=== PATIENT | female | born 1975 | race Caucasian/White ===

== ENCOUNTER 2017-01-25 21:09 | Emergency (ER) | payer OTHER ==
--- NOTE | 2017-01-25 21:32 | CPEKG ---
Heart Rate: 92 RR Interval: 652 P-R Interval: 152 QRSD Interval: 88 QT Interval: 364 QTC Interval: 451 P [place]: 79 QRS [place]: 62 T Wave [place]: 54 EKG Severity - ABNORMAL ECG - EKG Impression: SINUS RHYTHM EKG Impression: MULTIPLE VENTRICULAR PREMATURE COMPLEXES Electronically Signed By: Jose Howard 26-Jan-2017 06:41:29
--- NOTE | 2017-01-25 21:55 | EDPHY ---
H & P Stated Complaint: IRREG, RAPID HR SINCE 1930, HAD HOLTER MONITOR LAST WK, HAS OWN EKG READING HPI/ROS: HPI CHIEF COMPLAINT: Palpitations HISTORY OF PRESENT ILLNESS: This patient very pleasant 41-year-old female, significant past medical history for AFib status post cardiac ablation years ago , over the past 2 weeks she has been noticing some frequent palpitations, she was seen and evaluated by Dr. Navas and had a Holter monitor. She was diagnosed with frequent PVCs and started on Coreg on Friday minimal does 3.125. States this evening she was sitting down she felt very fast palpitations she became anxious and concerned she decided come the emergency room for evaluation. She denies chest pain, shortness of breath, lightheadedness, syncope, vomiting numbness or tingling. Specifically she did not have chest pain she does tells me there was a brief episode of very fast heart rate. She did trace her rhythm on a alex on her iPad which showed PVCs bigeminy pattern. Past Medical History: AFib status post cardiac ablation, recent diagnosis of frequent PVCs on Coreg Past Surgical History: Right shoulder surgery, cardiac ablation Social History: Denies daily use of drugs alcohol tobacco products, lives in [place], at bedside Family History: Noncontributory ROS REVIEW OF SYSTEMS: A comprehensive 10 point review of systems is otherwise negative aside from elements mentioned in the history of present illness. Exam Constitutional appears well nontoxic,triage nursing summary reviewed, vital signs reviewed, awake/alert. Eyes normal conjunctivae and sclera, EOMI, PERRLA. HENT normal inspection, atraumatic, moist mucus membranes, no epistaxis, neck supple/ no meningismus, no raccoon eyes. Respiratory clear to auscultation bilaterally, normal breath sounds, no respiratory distress, no wheezing. Cardiovascular rate normal, regular rhythm, no murmur, no edema, distal pulses normal. Gastrointestinal soft, non-tender, no rebound, no guarding, normal bowel sounds, no distension, no pulsatile mass. Genitourinary no CVA tenderness. Musculoskeletal no midline vertebral tenderness, full range of motion, no calf swelling, no tenderness of extremities, no meningismus, good pulses, neurovascularly intact. Skin pink, warm, & dry, no rash, skin atraumatic. Neurologic awake, alert and oriented x 3, AAOx3, moves all 4 extremities equally, motor intact, sensory intact, CN II-XII intact, normal cerebellar, normal vision, normal speech. Psychiatric normal mood/affect. Heme/Lymph/Immune no lymphadenopathy. Differential Diagnosis: includes but is not limited to in a particular order, electrolyte disturbance, dehydration, PVCs, bigeminy, other cardiac arrhythmia, doubt acute coronary syndrome Medical Decision Making: plan for this patient showed an IV established be placed on full court monitor she will have an EKG will check basic lab work including a troponin. However upon arrival here in emergency room she has no palpitations she feels fine she is slightly anxious, she does not have chest pain or shortness of breath or any symptoms at this time. Vital signs are stable. Re-evaluation: EKG: Time of EKG 2128 this is sinus rhythm rate of 92 PVC present. Otherwise no acute ischemia. 2234: Re-evaluation this time this patient is resting comfortably no acute distress. No chest pain or shortness of breath. Placed on a full court monitor at this time no signs of cardiac arrhythmia. Does have PVCs on her EKG this is most likely your cause of her palpitations. I do recommend that she follows up with Dr. 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 They may need to increase this dose. She understands return emergency room she develops worsening symptoms includes severe palpitations, feeling she is going to pass out, syncope, chest pain shortness of breath. It is noted her blood work is reassuring, negative troponin, nonischemic EKG, normal chest x-ray. Patient is comfortable this plan. ED x-ray chest one view: negative for acute cardiopulmonary disease. Source: Patient - Personal History LMP (Females 10-55): 1-7 Days Ago Current Tetanus/Diphtheria Vaccine: Yes - Medical/Surgical History Hx Asthma: No Hx Chronic Respiratory Disease: No Hx Diabetes: No Hx Cardiac Disease: No Hx Renal Disease: No Hx Cirrhosis: No Hx Alcoholism: No Hx HIV/AIDS: No Hx Splenectomy or Spleen Trauma: No Other PMH: A-FIB ABLATION- 04/2014. SHOULDER SURG - Social History Smoking Status: Never smoked Constitutional: Initial Vital Signs Temperature (C) 36.4 C 01/25/17 21:16 Heart Rate 95 01/25/17 21:16 Respiratory Rate 18 01/25/17 21:16 Blood Pressure 112/80 01/25/17 21:16 O2 Sat (%) 100 01/25/17 21:16 O2 Delivery Mode Room Air Allergies/Adverse Reactions: No Known Allergies Allergy (Unverified 01/25/17 21:13) Home Medications: Medication Instructions Recorded Aspirin 01/08/15 Ciprodex Otic Suspension 01/25/17 Coreg 01/25/17 Medical Decision Making - Data Points Laboratory Results: Laboratory Results 01/25/17 21:45 01/25/17 21:45 01/25/17 01/25/17 01/25/17 21:45 21:45 21:45 WBC 6.86 10^3/uL 10^3/uL (3.80-9.50) RBC 4.83 10^6/uL 10^6/uL (4.18-5.33) Hgb 14.3 g/dL g/dL (12.6-16.3) Hct 42.0 % % (38.0-47.0) MCV 87.0 fL fL (81.5-99.8) MCH 29.6 pg pg (27.9-34.1) MCHC 34.0 g/dL g/dL (32.4-36.7) RDW 12.7 % % (11.5-15.2) Plt Count 228 10^3/uL 10^3/uL (150-400) MPV 10.2 fL fL (8.7-11.7) Neut % (Auto) 53.4 % % (39.3-74.2) Lymph % (Auto) 33.5 % % (15.0-45.0) Mayes % (Auto) 11.8 % % (4.5-13.0) Eos % (Auto) 0.6 % % (0.6-7.6) Baso % (Auto) 0.6 % % (0.3-1.7) Nucleat RBC Rel Count 0.0 % % (0.0-0.2) Absolute Neuts (auto) 3.66 10^3/uL 10^3/uL (1.70-6.50) Absolute Lymphs (auto) 2.30 10^3/uL 10^3/uL (1.00-3.00) Absolute Monos (auto) 0.81 10^3/uL H 10^3/uL (0.30-0.80) Absolute Eos (auto) 0.04 10^3/uL 10^3/uL (0.03-0.40) Absolute Basos (auto) 0.04 10^3/uL 10^3/uL (0.02-0.10) Absolute Nucleated RBC 0.00 10^3/uL 10^3/uL (0-0.01) Immature Gran % 0.1 % % (0.0-1.1) Immature Gran # 0.01 10^3/uL 10^3/uL (0.00-0.10) PT INR APTT D-Dimer Sodium 141 mEq/L mEq/L (134-144) Potassium 3.6 mEq/L mEq/L (3.5-5.2) Chloride 103 mEq/L mEq/L (97-110) Carbon Dioxide 25 mEq/l mEq/l (22-31) Anion Gap 13 mEq/L mEq/L (8-16) BUN 14 mg/dL mg/dL (7-23) Creatinine 0.7 mg/dL mg/dL (0.6-1.0) Estimated GFR > 60 Glucose 73 mg/dL mg/dL (70-100) Calcium 9.9 mg/dL mg/dL (8.5-10.4) Magnesium 2.1 mg/dL mg/dL (1.6-2.3) Total Bilirubin 0.5 mg/dL mg/dL (0.1-1.4) Conjugated Bilirubin 0.3 mg/dL mg/dL (0.0-0.5) Unconjugated Bilirubin 0.2 mg/dL mg/dL (0.0-1.1) AST 19 IU/L IU/L (14-46) ALT 34 IU/L IU/L (9-52) Alkaline Phosphatase 65 IU/L IU/L (38-126) Creatine Kinase 41 IU/L IU/L (0-156) CK-MB (CK-2) Fraction 0.40 ng/mL ng/mL (0-3.19) Troponin I < 0.012 ng/mL ng/mL (0-0.034) NT-Pro-B Natriuret Pep 78 pg/mL pg/mL (0-125) Total Protein 8.0 g/dL g/dL (6.3-8.2) Albumin 4.5 g/dL g/dL (3.5-5.0) Lipase 116.0 IU/L IU/L (23-300) Beta HCG, Qual NEGATIVE 01/25/17 21:24 WBC RBC Hgb Hct MCV MCH MCHC RDW Plt Count MPV Neut % (Auto) Lymph % (Auto) Mayes % (Auto) Eos % (Auto) Baso % (Auto) Nucleat RBC Rel Count Absolute Neuts (auto) Absolute Lymphs (auto) Absolute Monos (auto) Absolute Eos (auto) Absolute Basos (auto) Absolute Nucleated RBC Immature Gran % Immature Gran # PT 12.9 SEC SEC (12.0-15.0) INR 0.98 (0.83-1.16) APTT 27.9 SEC SEC (23.0-38.0) D-Dimer 0.28 ug/mLFEU ug/mLFEU (0.00-0.50) Sodium Potassium Chloride Carbon Dioxide Anion Gap BUN Creatinine Estimated GFR Glucose Calcium Magnesium Total Bilirubin Conjugated Bilirubin Unconjugated Bilirubin AST ALT Alkaline Phosphatase Creatine Kinase CK-MB (CK-2) Fraction Troponin I NT-Pro-B Natriuret Pep Total Protein Albumin Lipase Beta HCG, Qual Medications Given: Discontinued Medications Sodium Chloride (Ns) 1,000 mls @ 0 mls/hr IV ONCE ONE PRN Reason: Wide Open Stop: 01/25/17 22:05 Last Admin: 01/25/17 22:16 Dose: 1,000 mls Departure - Departure Disposition: Home, Routine, Self-Care Clinical Impression: Palpitations, PVCs (premature ventricular contractions) Condition: Good Instructions: Palpitations (ED) Additional Instructions: 1. Make sure to stay well-hydrated drink lots of fluids. 2.Take your COREG a as previously prescribed. 3.Please follow up with Dr. Navas. 4. return emergency room if you have worsening symptoms includes chest pain, syncope, severe palpitations, or you feel like you are going to pass out or pass out. Referrals: ANTONINA MACK [Primary Care Provider] - As per Instructions
[2017-01-25] MEDS ORDERED: NS 1,000 ML IV ONE (22:04)
[2017-01-25 22:12] LABS: % IMMATURE GRANULYOCYTES 0.1 % (0.0-1.1); ABSOLUTE IMMATURE GRANULOCYTES 0.01 10^3/uL (0.00-0.10); ADD DIFF? NO; ADD MORPH? NO; ADD SCAN? NO; ATYPICAL LYMPHOCYTE FLAG 10 (0-99); FRAGMENT RBC FLAG 0 (0-99); HEMOGLOBIN 14.3 g/dL (12.6-16.3); LEFT SHIFT FLG 0 (0-99); LIPEMIA HEMOLYSIS FLAG 90 (0-99); MEAN CELL HEMOGLOBIN 29.6 pg (27.9-34.1); MEAN PLATELET VOLUME 10.2 fL (8.7-11.7); PLATELET CLUMPS FLAG 0 (0-99); PLATELET COUNT 228 10^3/uL (150-400); RED BLOOD CELL COUNT 4.83 10^6/uL (4.18-5.33); RED CELL DISTRIBUTION WIDTH 12.7 % (11.5-15.2)
[2017-01-25 22:18] LABS: INR 0.98 (0.83-1.16); PROTIME(PATIENT) 12.9 SEC (12.0-15.0)
[2017-01-25 22:19] LABS: APTT 27.9 SEC (23.0-38.0)
[2017-01-25 22:20] LABS: ALANINE AMINOTRANSFERASE 34 IU/L (9-52); ALBUMIN 4.5 g/dL (3.5-5.0); ALKALINE PHOSPHATASE 65 IU/L (38-126); ANION GAP 13 mEq/L (8-16); ASPARTATE AMINOTRANSFERASE 19 IU/L (14-46); BILIRUBIN,TOTAL 0.5 mg/dL (0.1-1.4); BILIRUBIN-CONJUGATED 0.3 mg/dL (0.0-0.5); BILIRUBIN-UNCONJUGATED 0.2 mg/dL (0.0-1.1); CALCIUM 9.9 mg/dL (8.5-10.4); CARBON DIOXIDE 25 mEq/l (22-31); CHLORIDE 103 mEq/L (97-110); CREATININE 0.7 mg/dL (0.6-1.0); GLOMERULAR FILTRATION RATE > 60; GLUCOSE 73 mg/dL (70-100); MAGNESIUM 2.1 mg/dL (1.6-2.3); POTASSIUM 3.6 mEq/L (3.5-5.2); SODIUM 141 mEq/L (134-144)
[2017-01-25 22:32] LABS: TROPONIN I < 0.012 ng/mL (0-0.034)
[2017-01-25 22:43] VITALS: BP 114/81; PULSE 78; RESP 16; TEMP 97.7; O2SAT 97
== END 2017-01-25 22:43 | disposition home or self-care (01) ==
DX: I49.3 Ventricular premature depolarization (principal)